=== PATIENT | female | born 1975 | race Caucasian/White ===

== ENCOUNTER 2022-09-20 10:09 | Emergency (ER) | payer BC, SELFPAY ==
[2022-09-20 10:17] VITALS: BP 99/68; PULSE 76; RESP 18; TEMP 36.9; O2SAT 100; BMI 25.4
--- NOTE | 2022-09-20 10:46 | ED_ITS ---
HPI - General Adult General Time Seen by Provider: 10:46 Date Seen: 09/20/22 Chief complaint: Hip Injury/Pain Stated complaint: Back pain Fell down stairs yesterday Time Seen by Provider: 09/20/22 10:45 Source: patient and RN notes reviewed Mode of arrival: ambulatory Limitations: no limitations History of Present Illness HPI narrative: Rosa is a very pleasant 47-year-old female previously who comes to the emergency room for back and buttock pain after falling yesterday. Patient states that she was going down some carpeted stairs when she slipped and fell down 2-3 striking her right lower back against the threshold. She notes that she tried to stay still for at least 10 minutes as she was having significant pain. She notes that she used Aleve last night and was icing but notes that she is not feeling any better today. Her most comfortable position is when she is walking. She notes that trying to get up from sitting or getting in and out of the car is especially painful. She notes that at 1 point she did have some radiation into her right buttock and perhaps down part of her leg but no numbness or tingling today and there is no weakness of the right lower extremity. She denies any possibility of . She notes that she has not had any blood in her urine. Related Data Home Medications Medication Instructions Recorded Confirmed albuterol 90 mcg/actuation aerosol mcg inhalation 09/20/22 inhaler cholecalciferol (vitamin D3) 10 5,000 unit PO DAILY 09/20/22 09/20/22 mcg (400 unit) capsule floxitine 10 mg PO DAILY 09/20/22 09/20/22 lizness PO DAILY 09/20/22 monophinal 200 mg PO DAILY 09/20/22 09/20/22 symbacort inhalation DAILY 09/20/22 Allergies Allergy/AdvReac Type Severity Reaction Status Date / Time gluten Allergy Mild autoimmune Verified 09/20/22 10:22 attack Review of Systems Status of ROS: Reports: 6 or more systems reviewed and unremarkable except as noted in History and below Const: Denies: fever ENMT: Denies: neck pain Cardio: Denies: chest pain or shortness of breath with exertion Resp: Denies: shortness of breath GI: Denies: abdominal pain or nausea : Denies: urinary incontinence Musculo: Reports: back pain; Denies: neck pain Neuro: Denies: headache or numbness in extremities PFSH PFS Medical History Celiac disease ?K90.0 - Celiac disease (ICD-10) Social History Smoking Status: Never smoker Do you use any of these nicotine containing products: None How often do you have a drink containing alcohol: never AUDIT-C Alcohol total score: 0 Non-prescribed substance use: denies use Exam Narrative: Exam Narrative: Rosa is a very pleasant 47-year-old female. She is in no acute distress. Very petite. External ears eyes nose clear. Head is atraumatic normocephalic. Heart with regular rate and rhythm and lungs are clear. No CVA tenderness with percussion. She has point tenderness at the level of L2-3 right paraspinous musculature. A midline tenderness is absent. No step-offs are palpated. There are no skin changes including bruising or erythema at this level. She has no pain down sacrum. She has some mild right sacral notch pain but again no skin changes. She is ambulating without difficulty. Although I must admit that she seems very uncomfortable when she is trying to get up from the bed or moving about. No loss of bowel or bladder control. Const: Vital Signs, click to edit/add: Vital Signs - 24 hr 09/20/22 10:17 Temperature 98.4 F Pulse Rate [Right Pulse Oximeter] 76 Respiratory Rate 18 Blood Pressure [Ri ght Upper Arm] 99/68 Pulse Oximetry 100 Oxygen Delivery Me thod Room Air Documenting provider has reviewed patient's vital signs: yes Course Course Hospital Course: At this time patient has no neurological complaints such as loss of bowel or bladder control or weakness. Would recommend starting with x-rays of the lumbar spine and the pelvis. Reevaluation(s) Reevaluation #1: Discussed with patient that the x-rays of the spine and pelvis are negative on radiological over-read. Vital Signs Vital signs: Initial Vital Signs Temperature 98.4 F 09/20/22 10:17 Temperature Source Temporal Artery Scan 09/20/22 10:17 Pulse Rate 76 09/20/22 10:17 Respiratory Rate 18 09/20/22 10:17 Blood Pressure 99/68 09/20/22 10:17 Blood Pressure Mean 78 09/20/22 10:17 Blood Pressure Position Sitting 09/20/22 10:17 Pulse Oximetry 100 09/20/22 10:17 Oxygen Delivery Method Room Air 09/20/22 10:17 Vital Signs Temperature 98.4 F 09/20/22 10:17 Pulse Rate 76 09/20/22 10:17 Respiratory Rate 18 09/20/22 10:17 Blood Pressure 99/68 09/20/22 10:17 Pulse Oximetry 100 09/20/22 10:17 Oxygen Delivery Method Room Air 09/20/22 10:17 Temperature 98.4 F 09/20/22 10:17 Pulse Rate 76 09/20/22 10:17 Respiratory Rate 18 09/20/22 10:17 Blood Pressure 99/68 09/20/22 10:17 Pulse Oximetry 100 09/20/22 10:17 Oxygen Delivery Method Room Air 09/20/22 10:17 Medical Decision Making MDM Narrative Medical decision making narrative: 1. Back injury-at this time x-rays are reassuring with no evidence of fracture. Patient is able to ambulate and has no neurological complaints at this time. Discussed possibility of pursuing CT and the down side of that which do include cost, and radiation. However given the level of discomfort this is a reasonable thing to do. Alternatively, discussed waiting and seeing where discomfort goes over the next few days. In the meantime I would recommend light activity and continuing current therapy which included Aleve and icing. After discussion Malika and her are going to wait for any further imaging. However, if she has worsening symptoms she will return to the emergency room for further evaluation. If her symptoms are not improving she will follow up with her primary MD for further imaging. I did state that there have been occasions whe re x-rays were read is normal and there was underlying injury. They do understand that that is a risk. 2. Disposition-home at this time. Return for worsening symptoms. Lab Data Labs: Lab Results 09/20/22 Range/Units 11:04 Urine Color Yellow (Yellow) Urine Appearance Clear (Clear) Urine pH 6.5 (5.0-8.5) Ur Specific [place] 1.015 (1.000-1.030) Urine Protein Negative (Negative) Urine Glucose (UA) Negative (Negative) Urine Ketones Negative (Negative) Urine Blood Negative (Negative) Urine Nitrite Negative (Negative) Urine Bilirubin Negative (Negative) Urine Urobilinogen 0.2 (0.2-1.0) Ur Leukocyte Esterase Negative (Negative) Imaging Data Lumbar spine x-ray: Attestation: I have reviewed the pertinent imaging results. My impression: No obvious fracture Radiologist's impression: The lumbar spine was examined during weight-bearing with AP and lateral views for a total of two views. There is no sign of fracture or subluxation. The vertebral bodies are normal in height and they are in anatomic alignment. The disc spaces are normal in height. The visualized bony pelvis and bowel gas pattern are normal in appearance. IMPRESSION: Normal lumbar spine. Pelvis x-ray: Attestation: I have reviewed the pertinent imaging results. My impression: No obvious fracture Radiologist's impression: Overlying bowel gas slightly limits evaluation of the sacrum. Within these limitations, no acute fracture. Bilateral SI joints and pubic symphysis are congruent. No soft tissue swelling or radiopaque foreign body. Above-average colonic stool burden in the cecum. Impression: Overlying bowel gas slightly limits evaluation of the sacrum. 1. No acute fracture. If there is high clinical suspicion for a radiographically occult hip fracture, consider CT or MR for further evaluation. 2. No soft tissue swelling or radiopaque foreign body. Discharge Plan Discharge Clinical Impression: Back injury Patient Disposition: Home, Self-Care Condition: Unchanged Instructions: Back Pain (ED) Additional Instructions: At this time recommend alternating ibuprofen or Aleve with Tylenol every 4 hours as needed for discomfort. You could still continue icing per your previous routine. Seek medical attention for any worsening symptoms. Especially loss of bowel or bladder control, lower extremity weakness or increasing pain. Follow-up with your regular MD if you are not improved. Return to the ER if you are worsening. Prescriptions: No Action monophinal 200 mg PO DAILY floxitine 10 mg PO DAILY lizness PO DAILY Patient Comments: unsure of the dose cholecalciferol (vitamin D3) 10 mcg (400 unit) capsule 5,000 unit PO DAILY albuterol 90 mcg/actuation aerosol inhalation symbacort inhalation DAILY Patient Comments: 2 puffs Follow Up/Referrals: Provider,Not a Local [Primary Care Provider] - Stand Alone Forms: [employer] [facility] [place] Info Instructions
--- NOTE | 2022-09-20 11:03 | CRLHL7_ITS ---
For Patients: As a result of the Century Cures Act, medical imaging exams and procedure reports are released immediately into your electronic medical record. You may view this report before your referring provider. If you have questions, please contact your health care provider. Indication: Fall with right buttock pain Technique: AP view of the pelvis Comparison: Same day lumbar spine radiograph Findings: Overlying bowel gas slightly limits evaluation of the sacrum. Within these limitations, no acute fracture. Bilateral SI joints and pubic symphysis are congruent. No soft tissue swelling or radiopaque foreign body. Above-average colonic stool burden in the cecum. Impression: Overlying bowel gas slightly limits evaluation of the sacrum. 1. No acute fracture. If there is high clinical suspicion for a radiographically occult hip fracture, consider CT or MR for further evaluation. 2. No soft tissue swelling or radiopaque foreign body. Dictated by Jerrod Wilkes MD @ 09/20/2022 11:47:18 AM (Electronically Signed)
--- NOTE | 2022-09-20 11:03 | CRLHL7_ITS ---
For Patients: As a result of the Century Cures Act, medical imaging exams and procedure reports are released immediately into your electronic medical record. You may view this report before your referring provider. If you have questions, please contact your health care provider. HISTORY: Status post fall with L2-3 right paraspinous pain. COMPARISON: None available. FINDINGS: The lumbar spine was examined during weight-bearing with AP and lateral views for a total of two views. There is no sign of fracture or subluxation. The vertebral bodies are normal in height and they are in anatomic alignment. The disc spaces are normal in height. The visualized bony pelvis and bowel gas pattern are normal in appearance. IMPRESSION: Normal lumbar spine. Dictated by Tiago Mixon MD @ 09/20/2022 11:54:26 AM (Electronically Signed)
[2022-09-20 11:34] LABS: Appearance Urine Clear (Clear); Bilirubin Urine Negative (Negative); Blood Urine Negative (Negative); Color Urine Yellow (Yellow); Glucose Urine Negative (Negative); Ketones Urine Negative (Negative); Leukocyte Esterase Urine Negative (Negative); Nitrite Urine Negative (Negative); Protein Urine Negative (Negative); Specific Gravity Urine 1.015 (1.000-1.030); Urobilinogen Urine 0.2 (0.2-1.0); pH Urine 6.5 (5.0-8.5)
== END 2022-09-20 12:12 | disposition home or self-care (01) ==
PROVIDERS: Emergency Provider Family Medicine
DX: S39.92XA Unspecified injury of lower back, initial encounter (principal); W10.9XXA Fall (on) (from) unspecified stairs and steps, initial encounter
CPT/HCPCS: 72100; 72170; 81003; 99284